=== PATIENT | male | born 1975 | race Caucasian/White ===

== ENCOUNTER 2024-05-13 14:42 | Emergency (ER) | payer SELFPAY ==
[2024-05-13 15:06] VITALS: BP 110/70; PULSE 96; TEMP 39; O2SAT 96
[2024-05-13 15:41] LABS: Basophils % 0.6 %; Eosinophils % 0.6 %; Hematocrit 42.3 % (37-53); Lymphocytes # 0.7 10^3/uL (0.8-4.8); Mean Corpuscular HGB Conc 33.3 g/dL (30-55); Mean Corpuscular Hemoglobin 29.8 pg (27-33); Mean Corpuscular Volume 89.4 fl (82-101); Mean Platelet Volume 9.1 fL (7.4-10.4); Monocytes # 0.6 10^3/uL (0.2-0.9); Neutrophils # 3.68 10^3/uL (1.8-7.7); Neutrophils % 73.6 %; Nucleated Red Blood Cells % 0 %; Platelet Count 146 10^3/cmm (157-399); Red Blood Count 4.73 10^6/uL (3.85-5.65); Red Cell Distribution Width 12.3 % (12.1-15.1)
[2024-05-13 15:58] LABS: Alanine Aminotransferase 31 U/L (0-41); Albumin Level 3.9 g/dL (3.5-5.2); Alkaline Phosphatase 72 U/L (40-130); Anion Gap 16.3 (5-19); Aspartate Amino Transferase 30 U/L (0-40); Blood Urea Nitrogen 21 mg/dL (6-20); Calcium 9.1 mg/dL (8.5-10.5); Carbon Dioxide 23 mmol/L (22-29); Chloride 100 mmol/L (98-107); Creatinine Clr Calc Pharmacy 60.6283; Globulin 3.1 g/dL (1.3-4.6); Glomerular Filtration Rate 54.3 mL/min (90-130); Glucose 107 mg/dL (65-115); Osmolality Calculated 283 mOsm/kg (285-295); Potassium 4.3 mmol/L (3.5-5.1); Sodium 135 mmol/L (136-145); Total Bilirubin 0.4 mg/dL (0.15-1.2)
--- NOTE | 2024-05-13 16:03 | XRR_ITS ---
PROCEDURE INFORMATION: Exam: XR Chest Exam date and time: 05/13/2024 4:44 PM Age: 48 years old Clinical indication: Cough and dyspnea; TECHNIQUE: Imaging protocol: Radiologic exam of the chest. Views: 1 view. COMPARISON: No relevant prior studies available. FINDINGS: Lungs: Unremarkable. No consolidation. Pleural spaces: Unremarkable. No pleural effusion. No pneumothorax. Heart/Mediastinum: Unremarkable. No cardiomegaly. Bones/joints: Unremarkable. XR/XR chest 1V portable [id number] IMPRESSION: No acute findings.
[2024-05-13] MEDS: sodium chloride 0.9% 1,000 ML 999 ML IV ×2 (16:38→17:26)
[2024-05-13 16:40] VITALS: BP 107/66; PULSE 91; RESP 16; O2SAT 98
[2024-05-13 17:00] VITALS: PULSE 80; O2SAT 99
[2024-05-13 17:30] VITALS: PULSE 80; O2SAT 100
--- NOTE | 2024-05-13 17:30 | ED_ITS ---
HPI - Fever 2 General: Chief Complaint: Fever Stated Complaint: (Travel Eugren[place]) fever, fatigue Time Seen by Provider: 05/13/24 14:50 History of Present Illness: 48-year-old male who recently traveled t [facility]. He was ill while he was there had a diarrheal illness and was treated with a combination antiparasitic quinolone antibiotic. He has not on any malaria prophylaxis. His GI symptoms have seemed to improved and even gotten a little constipation. He does have some chronic GI problems and has to be very careful with diet. No other underlying medical issues. Since returning home he is intermittently had a fever with temps up to 102.2 for the last 2-1/2 to 3 days. His symptoms seem to be under 24-hour cycle. No significant respiratory symptoms no him hematemesis coffee-ground emesis hematochezia or melena no nausea or vomiting still having some loose stools but those have largely improved. Remotely he had a malarial infection but had pretreated clear to. No significant abdominal pain no chest pain. Has not had any swelling in his legs. He has some Cipro that he had taken for the trip and is well as some antimalarials but he had not taken either while he is there and has not taken them since returning home. Associated symptoms: Reports chills and diarrhea; Deny abdominal pain, chest pain or dysuria Review of Systems 2 Const: Reports: fever(s), chills, fatigue and malaise Card: Denies: chest pain Resp: Denies: dyspnea GI: Reports: diarrhea; Denies: abdominal pain : Denies: dysuria, urinary frequency or urinary urgency Musc: Denies: neck pain or back pain Skin/Breast: Denies: rash PFSH ED 2 PFSH: Surgical History Hx of wisdom tooth extraction 1994 Pilonidal cyst 1998 Physical Exam 2 Const: GENERAL APPEARANCE: cooperative ORIENTATION/CONSCIOUSNESS: Yes awake, Yes oriented to person, Yes oriented to place and Yes oriented to time HENMT: COMMON NORMALS: normocephalic, atraumatic and hearing grossly normal bilaterally HEAD & SCALP: normocephalic and atraumatic Resp: COMMON NORMALS: normal respiratory effort, No retractions, No use of accessory muscles and clear to auscultation bilaterally AUSCULTATION: clear to auscultation bilaterally Cardio: COMMON NORMALS: regular rate, regular rhythm and No murmurs present (Cardio) RATE: regular rate RHYTHM: regular rhythm GI: COMMON NORMALS: Soft to palpation and No hepatosplenomegaly present A USCULTATION: Yes normoactive bowel sounds PALPATION: Yes Soft to palpation, No Tenderness to palpation present (GI), No Guarding due to palpation present (GI) and Yes No hepatosplenomegaly present Extremity: COMMON NORMALS: normal to inspection, capillary refill normal, no clubbing, cyanosis or edema, no calf tenderness and no pedal edema Neuro: SENSORIUM/ORIENTATION: Yes oriented to person, Yes oriented to place and Yes oriented to time Skin: COMMON NORMALS: no rashes or lesions noted GENERAL SKIN EXAM: no rashes or lesions noted Course 2 Vital Signs: Vital signs: Vital Signs Temperature 102.2 F H 05/13/24 15:06 Pulse Rate 82 05/13/24 18:00 Respiratory Rate 16 05/13/24 16:40 Blood Pressure 112/64 05/13/24 18:00 Pulse Oximetry 100 05/13/24 18:00 Oxygen Delivery Me thod Room Air 05/13/24 18:00 MDM - Fever Medical Decision Making Labs and imaging reviewed patient does have a temp of 102.2. A little bit of a lymphocytosis but he has no respiratory symptoms. Respiratory panel is pending. I discussed his case Dr. Beltran who is her infectious disease physician. We reviewed several possibilities including dengue fever leptospirosis as well as malaria. We did send off malaria PCR we had already ordered a peripheral smear. Patient has the atovaquone proguanil combination medication he was prescribed prior to leaving on his trip. He has not yet started it. Dr. Beltran recommended that he could wait until the results came back or if he wished he could start it now since it is usually well-tolerated. He has already had stool cultures as an outpatient clinic so far those have been reported to be negative. We did do blood cultures as well as a respiratory panel. UA is pending. He is feeling better with the IV fluids. Will contact him with the results of the tests that were run today. Continue to treat fever as needed and increase fluid intake. Lab Data 05/13/24 15:29 05/13/24 15:29 Radiology Impressions Chest X-Ray 05/13/24 16:03 IMPRESSION: No acute findings. Laboratory Results WBC 5.00 10^3/uL (3.29-11.43) 05/13/24 15: RBC 4.73 10^6/uL (3.85-5.65) 05/13/24 15: Hgb 14.10 g/dL (11.27-16.99) 05/13/24 15: Hct 42.3 % (37-53) 05/13/24 15: MCV 89.4 fl (82-101) 05/13/24 15: MCH 29.8 pg (27-33) 05/13/24 15: MCHC 33.3 g/dL (30-55) 05/13/24: RDW 12.3 % (12.1-15.1) 05/13/24 15: Plt Count 146 10^3/cmm (157-399) L 05/13/24: MPV 9.1 fL (7.4-10.4) 05/13/24 15: Neut % (Auto) 73.6 % 05/13/24 15: Lymph % (Auto) 14.0 % 05/13/24 15: [place] % (Auto) 11.0 % 05/13/24 15: Eos % (Auto) 0.6 % 05/13/24 15: Baso % (Auto) 0.6 % 05/13/24: Neut # (Auto) 3.68 10^3/uL (1.8-7.7) 05/13/24: Lymph # (Auto) 0.7 10^3/uL (0.8-4.8) L 05/13/24: [place] # (Auto) 0.6 10^3/uL (0.2-0.9) 05/13/24: Eos # (Auto) 0.0 10^3/uL (0.0-0.8) 05/13/24 15: Baso # (Auto) 0.0 10^3/uL (0.0-0.1) 05/13/24 15: Nucleated RBC % (auto) 0 % 05/13/24 15: Nucleated RBCs # 0.0 /100WBC 05/13/24 15:29 Sodium 135 mmol/L (136-145) L 05/13/24 15:29 Potassium 4.3 mmol/L (3.5-5.1) 05/13/24 15:29 Chloride 100 mmol/L (98-107) 05/13/24 15:29 Carbon Dioxide 23 mmol/L (22-29) 05/13/24 15:29 Anion Gap 16.3 (5-19) 05/13/24 15:29 BUN 21 mg/dL (6-20) H 05/13/24 15:29 Creatinine 1.4 mg/dL (0.7-1.2) H 05/13/24 15:29 GFR Calculation 54.3 mL/min (90-130) L 05/13/24 15:29 Glucose 107 mg/dL (65-115) 05/13/24 15:29 Calculated Osmolality 283 mOsm/kg (285-295) L 05/13/24 15:29 Lactic Acid 1.0 mmol/L (0.5-2.2) 05/13/24 15:29 Calcium 9.1 mg/dL (8.5-10.5) 05/13/24 15:29 Total Bilirubin 0.4 mg/dL (0.15-1.2) 05/13/24 15:29 AST 30 U/L (0-40) 05/13/24 15:29 ALT 31 U/L (0-41) 05/13/24 15:29 Alkaline Phosphatase 72 U/L (40-130) 05/13/24 15:29 Total Protein 7.0 g/dL (6.6-8.7) 05/13/24 15:29 Albumin 3.9 g/dL (3.5-5.2) 05/13/24 15:29 Globulin 3.1 g/dL (1.3-4.6) 05/13/24 15:29 All radiology interpretation(s) finalized by discharge Discharge Plan Discharge Patient Disposition: Home Clinical Impression: Fever of unknown origin Condition: Stable Prescriptions: No Action atovaquone-proguanil [Malarone] 250-100 mg tablet See Rx Instructions PO .COMPLEX Qty: 30 0RF Rx Instructions: take 1 tab once daily x1 day before exposure, during time in area, and x7 days after leaving area PO ciprofloxacin HCl 500 mg tablet 500 mg PO BID 10 Days Qty: 20 0RF diazepam 2 mg tablet 2 mg PO .QHS PRN (Reason: sleep) Qty: 30 0RF Discharge Orders: Discharge ED (Routine); Ordered 05/13/24 Ordered By: Martin Bell Referrals: Pepe Hernandez MD [Primary Care Provider] - Discharge Diet: Usual diet Discharge Activity: Increase activity as tolerated Patient Instructions: Opioid Safety, Pain Management Activity Restrictions/Additional Instructions: Thank you for choosing [facility] for your healthcare needs today. It is very important that you follow up as instructed or that you return to the Emergency Department should you have concerns or if your condition changes or worsens in any way. You were seen in the emergency room today for a fever. Given your recent travel there are a number of things that could be causing your fever. We did discuss your case with our infectious disease doctor and have ordered several send out test and cultures. You can begin the atovaquone?proguanil (Malarone) if you wish while we wait for the malaria results. [facility] Malaria Prevention Transmission areas * All Drug resistance2 https://wwwnc.cdc.gov/travel/yellowbook/2023/preparing/vzotze-xmjiw-dxutydf-nyu [facility] qhx-mqzsgguclv-hk-country/[facility]#footnotes * Chloroquine Species * P. falciparum?(primarily) * P. malariae,?P. ovale, and?P. vivax?(less commonly) Recommended chemoprophylaxis * Atovaquone-proguanil, doxycycline, mefloquine, tafenoquine3 https://wwwnc.cdc.gov/travel/yellowbook/preparing/yjscmb-dovaj-ehqvknl-[facility]-orzuzrysey-oz-country#6419 Coding Level of Care Code ED Ski Guide for Gabino Jamison
[2024-05-13 18:00] VITALS: BP 112/64; PULSE 82; O2SAT 100
[2024-05-13 18:25] LABS: LAB Peripheral Smear Sent for Review
[2024-05-13 18:25] LABS: Adenovirus Not Detected (NOT DETECT); Chlamydia Pneumoniae Not Detected (NOT DETECT); Coronavirus 229E,HKU1,NL63,OC4 Not Detected (NOT DETECT); Human Metapneumovirus Not Detected (NOT DETECT); Human Rhinovirus/Enterovirus Detected (NOT DETECT); Influenza A Not Detected (NOT DETECT); Influenza A H1 Not Detected (NOT DETECT); Influenza A H1-2009 Not Detected (NOT DETECT); Influenza A H3 Not Detected (NOT DETECT); Influenza B Not Detected (NOT DETECT); Mycoplasma Pneumoniae Not Detected (NOT DETECT); Parainfluenza Virus Type 1 Not Detected (NOT DETECT); Parainfluenza Virus Type 2 Not Detected (NOT DETECT); Parainfluenza Virus Type 3 Not Detected (NOT DETECT); Parainfluenza Virus Type 4 Not Detected (NOT DETECT); Respiratory Syncytial Virus A Not Detected (NOT DETECT); Respiratory Syncytial Virus B Not Detected (NOT DETECT); SARS-COV-2 Not Detected (NOT DETECT)
[2024-05-13 18:37] VITALS: BP 111/60; PULSE 84; TEMP 37.5; O2SAT 100
[2024-05-17 14:58] LABS: C.Diff PCR (Lab) POSITIVE (Negative)
[2024-05-17 15:25] LABS: Clostridioides Difficile Toxin NEGATIVE (Negative)
== END 2024-05-13 18:38 | disposition home or self-care (01) ==
PROVIDERS: Emergency Medicine; Emergency Provider Family Medicine; PCP Family Medicine
DX: R50.9 Fever, unspecified (principal); D72.820 Lymphocytosis (symptomatic); A04.72 Enterocolitis due to Clostridium difficile, not specified as recurrent
CPT/HCPCS: 36415; 71045; 80053; 80503; 83605; 85025; 87040; 87207; 87324; 87486; 87493; 87581; 87633; 96360; 99284; J7030

== ENCOUNTER 2024-05-16 08:22 | Outpatient (CLI) | payer SELFPAY ==
[2024-05-17 14:35] LABS: Lyme AB Screen <0.90 index
[2024-05-22 17:10] LABS: RMSF IGG NOT DETECTED; RMSF IGM NOT DETECTED
[2024-05-23 17:19] LABS: E. Chaffeensis AB IGG <1:64; E. Chaffeensis AB IGM <1:20
== END 2024-05-16 08:23 | disposition home or self-care (01) ==
LOC: RAD 08:26
PROVIDERS: PCP Family Medicine; Visit Provider Family Medicine
DX: R19.7 Diarrhea, unspecified (principal); R50.9 Fever, unspecified
CPT/HCPCS: 36415; 86618; 86666; 86757

== ENCOUNTER 2024-05-17 06:00 | Outpatient (CLI) | payer SELFPAY | END 2024-05-17 06:01 | disposition home or self-care (01) | PROVIDERS: PCP Family Medicine; Visit Provider Family Medicine | DX: R50.9 Fever, unspecified (principal); R19.7 Diarrhea, unspecified | CPT/HCPCS: 87324; 87493 ==